=== PATIENT | female | born 1935 | race Caucasian/White ===

== ENCOUNTER 2016-08-04 19:49 | Inpatient (IN) | payer OTHER, MEDICAID ==
[~2016-08-04] VITALS: Ht 165.1 cm; Wt 75.3 kg
--- NOTE | 2016-08-04 19:49 | NUR ---
PT CARRIE BLS. TAKEN TO BED 7
[2016-08-04 19:55] VITALS: BP 142/87
--- NOTE | 2016-08-04 20:05 | NUR ---
BIBA FROM [facility] C/O LOW H&H AND GENERALIZED WEAKNESS.
[2016-08-04] MEDS ORDERED: NACL 0.9% 1,000 ML IV ONE (20:10)
[2016-08-04] MEDS ORDERED: ACETAMINOPHEN EXTRA STRENGTH 500 MG TAB ONE (20:15)
--- NOTE | 2016-08-04 20:20 | NUR ---
X-Ray at bedside.
[2016-08-04] MEDS ORDERED: PIPERACILLIN/TAZOBACTAM 3.375 GM in DEXTROSE 5% 50 ML IV ONE (20:30)
[2016-08-04] MEDS ORDERED: PIPERACILLIN/TAZOBACTAM 3.375 GM VIAL IV ONE (20:44)
[2016-08-04] MEDS ORDERED: POTASSIUM CHLORIDE 10 MEQ TABER PO ONE (21:15)
[2016-08-04] MEDS ORDERED: FUROSEMIDE 40 MG/4 ML VIAL IVP ONE (21:20)
--- NOTE | 2016-08-04 21:45 | NUR ---
Patient will be admitted to care of DR. CAZARES. Admited to TELEMETRY. Will go to room 109A. Belongings list completed. Report to ALEX RING.
[2016-08-04] MEDS ORDERED: MORPHINE SULFATE 2 MG/ML SYR IVP PRN (22:05)
[2016-08-04] MEDS ORDERED: LORazepam 2 MG/ML VIAL IVP PRN (22:05)
[2016-08-04] MEDS ORDERED: ONDANSETRON 4 MG/2 ML VIAL IVP PRN (22:05)
[2016-08-04] MEDS ORDERED: ALBUTEROL 0.083% 2.5 MG/3 ML NEBU INH PRN (22:05)
[2016-08-04] MEDS ORDERED: HYDROcodone/APAP 5/325 MG 1 TAB TAB PO PRN (22:05)
[2016-08-04] MEDS ORDERED: NACL 0.9% 1,000 ML IV SCH (22:05)
[2016-08-04] MEDS ORDERED: ACETAMINOPHEN 325 MG TAB PO PRN (22:05)
[2016-08-04] MEDS ORDERED: ZOLPIDEM 5 MG TAB PO PRN (22:05)
[2016-08-04] MEDS ORDERED: ALBUTEROL SULFATE/IPRATROPIU 3 ML SOL IH PRN (22:10)
[2016-08-04] MEDS ORDERED: POTASSIUM CHLORIDE 10 MEQ TABER PO SCH (22:15)
--- NOTE | 2016-08-04 22:15 | NUR ---
ADMITTED A PT FROM ER, TRANSPORTED VIA GURNEY, ACCOMPANIED BY ER NURSE. PT IS AWAKE AND ALERT, ON TELE MONITOR, DENIES PAIN. ON ROOM AIR, HAS NO S/S OF RESPIRATORY DISTRESS/DISCOMFORT NOTED. IV SITE IS PATENT AND INTACT. SKIN CHECKING DONE,INTACT. MRSA SWABBING DONE. ID BAND UPDATED. ROOM ORIENTATION DONE, VERBALIZED UNDERSTANDING. SAFETY MEASURES INITIATED, VINAY LIGHT WITHIN REACH. WILL CONTINUE TO MONITOR.
[2016-08-04 22:30] VITALS: BP 119/58
--- NOTE | 2016-08-04 22:30 | NUR ---
PT REFUSED TO USE YELLOW SOCKS AND SCD, EXPLANATION WAS GIVEN FOR USING SCD, REFUSED.
[2016-08-05] VITALS: BP 134/62
--- NOTE | 2016-08-05 | NUR ---
V/S CHECKED AND STABLE, DENIES PAIN. O ROOM AIR, HAS NO S/S OF RESPIRATORY DISTRESS/DISCOMFORT NOTED.
[2016-08-05] MEDS ORDERED: PIPERACILLIN/TAZOBACTAM 3.375 GM VIAL IV ONE (00:58)
--- NOTE | 2016-08-05 02:00 | NUR ---
EYES CLOSED, BREATHING EVEN AND UNLABORED. CALL LIGHT WITHIN REACH.
[2016-08-05 04:00] VITALS: BP 137/65
--- NOTE | 2016-08-05 04:00 | NUR ---
EYES CLOSED, BREATHING EVEN ANG UNLABORED. AROUSABLE BY HER NAME, V/S CHECKED AND STABLE, DENIED PAIN. NO S/S OF RESPIRATORY DISTRESS/DISCOMFORT NOTED.
[2016-08-05] MEDS ORDERED: PIPERACILLIN/TAZOBACTAM 3.375 GM in DEXTROSE 5% 50 ML IV SCH (05:00)
--- NOTE | 2016-08-05 06:00 | NUR ---
AM CARE DONE. IV SITE PATENT AND INTACT. CALL LIGHT WITHIN REACH.
[2016-08-05] MEDS: ALBUTEROL SULFATE/IPRATROPIU 3 ML SOL IH SCH ×4 (07:02→19:32)
--- NOTE | 2016-08-05 07:15 | NUR ---
RECEIVED REPORT FROM NIGHT NURSE, PT IS AAOX4. ON ROOM AIR IV TO LEFT HAND 24G INFUSING WELL, SKIN INTACT . INITIAL ASSESSMENT COMPLETED. REVIEWED PLAN OF CARE WITH PT, PT VERBALIZED UNDERSTANDING, ALL SAFETY PRECAUTIONS MET. CALL LIGHT WITHIN REACH. WILL CONTINUE TO MONITOR.
--- NOTE | 2016-08-05 07:15 | NUR ---
ENDORSED PT TO DAY SHIFT NURSE. PT IN STABLE CONDITION.
--- NOTE | 2016-08-05 07:15 | NUR ---
RECEIVED REPORT FROM NIGHT NURSE, PT IS AAOX3 KAZAKH SPEAKING. ON ROOM AIR IV TO LEFT HAND 24G INFUSING WELL, SKIN INTACT . PT STATES NO CHEST PAIN OR SOB AT AT THIS TIME. INITIAL ASSESSMENT COMPLETED. REVIEWED PLAN OF CARE WITH PT, PT VERBALIZED UNDERSTANDING, ALL SAFETY PRECAUTIONS MET. CALL LIGHT WITHIN REACH. WILL CONTINUE TO MONITOR. Addendum: 08/05/16 at 0803 by Elissa Ireland RN DELETE. WRONG PT.
[2016-08-05 08:00] VITALS: BP 155/65
[2016-08-05] MEDS ORDERED: FERROUS SULFATE 325 MG TABEC PO SCH (08:00)
[2016-08-05] MEDS ORDERED: MORPHINE SULFATE 2 MG/ML SYR IVP PRN (08:15)
[2016-08-05] MEDS ORDERED: ZOLPIDEM 10 MG TAB PO PRN (08:15)
[2016-08-05] MEDS ORDERED: DOCUSATE SODIUM 100 MG GELCAP PO PRN (08:15)
[2016-08-05] MEDS ORDERED: LORazepam 2 MG/ML VIAL IVP PRN (08:15)
[2016-08-05] MEDS ORDERED: ONDANSETRON 4 MG/2 ML VIAL IVP PRN (08:15)
[2016-08-05] MEDS: BUDESONIDE 0.5 MG/2 ML NEBU INH SCH ×2 (09:00→19:32)
[2016-08-05] MEDS: FUROSEMIDE 40 MG/4 ML VIAL IVP SCH ×2 (09:10→17:09)
[2016-08-05] MEDS: ASCORBIC ACID 500 MG TAB PO SCH (09:10)
[2016-08-05] MEDS: DEXT 5% / NACL 0.9% 500 ML IV SCH (09:11)
[2016-08-05] MEDS ORDERED: PANTOPRAZOLE 40 MG TABEC PO SCH (09:12)
--- NOTE | 2016-08-05 09:14 | NUR ---
DUE MEDICATIONS GIVEN, PT TOLERATED WELL. ALL NEEDS MET. CALL LIGHT WITHIN RAECH. WILL CONTINUE TO MONITOR.
[2016-08-05] MEDS ORDERED: ACETAMINOPHEN 325 MG SUPP RC PRN (09:15)
[2016-08-05] MEDS ORDERED: CARVEDILOL 3.125 MG TAB PO SCH (09:19)
--- NOTE | 2016-08-05 09:46 | NUR ---
PER JESSICA MUSEUM PREPARATOR, FAX REVIEW TO [facility] [phone] PHONE [phone] CM KIT [phone] SPOKE WITH ABDI AT [facility] TRACKING NUMBER [id number]. FAXED INITIAL REVIEW TO [facility] [phone] PHONE [phone]
--- NOTE | 2016-08-05 09:54 | NUR ---
PATIENT HAS BEEN SCREENED AND CATEGORIZED MODERATE NUTRITION RISK. PATIENT WILL BE SEEN WITHIN 3-5 DAYS OF ADMISSION. 08/07/16-08/09/[address] Addendum: 08/06/16 at [address] PATIENT HAS BEEN RE-SCREENED AND CATEGORIZED HIGH NUTRITION RISK. PATIENT WILL BE SEEN WITHIN 1-2 DAYS OF ADMISSION. 08/05/16-08/06/[address]
[2016-08-05] MEDS: ACETAMINOPHEN 325 MG TAB PO PRN (09:55)
[2016-08-05] MEDS: FERRIC GLUCONATE 125 MG in NACL 0.9% 100 ML IV SCH (09:56)
[2016-08-05] MEDS: POTASSIUM CHLORIDE 10 MEQ TABER PO PRN (10:49)
--- NOTE | 2016-08-05 10:59 | NUR ---
TEMPERATURE WAS RETAKEN 98.5 ORAL. ALL NEEDS MET. DAUGHTER AT BEDSIDE. CALL LIGHT WITHIN REACH. WILL CONTINUE TO MONITOR.
--- NOTE | 2016-08-05 11:03 | NUR ---
PT REFUSED BOTH HER BREATHING TX PT IS AWAKE AND ALERT WITH DAUGHTER AT BEDSIDE NO SIGNS OF DISTRESS WERE NOTED INSTRUCTED PT ON I.S PT DID 1000ML FOUR TIMES WITH GOOD EFFORT PT DID SPUTUM AND RN JACK NOTIFIED
[2016-08-05 12:00] VITALS: BP 117/59
[2016-08-05] MEDS: PIPER/TAZO 2.25GM/D5W PREMIX 50 ML IV SCH ×2 (12:00→17:09)
--- NOTE | 2016-08-05 12:00 | NUR ---
ONE UNIT OF RED BLOOD CELLS GIVEN, PRE TRANSFUSION VS: 98.6, [id number], HR 88, PULSE OX 95%. WILL CONTINUE TO MONITOR.
[2016-08-05] MEDS: FERROUS SULFATE 325 MG TABEC PO SCH ×2 (13:11→17:08)
--- NOTE | 2016-08-05 13:12 | NUR ---
DUE MEDICATION GIVEN. BLOOD TRANSFUSION CURRENTLY INFUSING. ALL NEEDS MET. CALL LIGHT WITHIN REACH. WILL CONTINUE TO MONITOR.
[2016-08-05 16:00] VITALS: BP 108/58
--- NOTE | 2016-08-05 16:30 | NUR ---
SECOND UNIT OF BLOOD STARTED. PRE INFUSION VS. 98.3, HR 83, RR 18, BP 134/65. WILL CONTINUE TO MONITOR
[2016-08-05] MEDS: PANTOPRAZOLE 40 MG TABEC PO SCH (17:09)
--- NOTE | 2016-08-05 17:10 | NUR ---
DUE MEDICATIONS GIVEN. PT TOLERATED WELL. SECOND UNIT OF BLOOD INFUSING AT THIS TIME. ALL NEEDS MET. CALL LIGHT WITHIN REACH. WILL CONTINUE TO MONITOR.
--- NOTE | 2016-08-05 19:15 | NUR ---
ENDORSED PLAN OF CARE TO NIGHT NURSE. BLOOD TRANSFUSION INFUSING . PT AWAKE NO S/S OF DISTRESS NOTED.
--- NOTE | 2016-08-05 19:20 | NUR ---
RECEIVED REPORT FROM DAY SHIFT NURSE. PATIENT IS AAOX4, ON TELE MONITOR, DENIES PAIN. ON ROOM AIR, HAS NO S/S OF RESPIRATORY DISTRESS/DISCOMFORT NOTED. IV SITE IS PATENT AND INTACT, BLOOD TRANSFUSION ONGOING AND INFUSING WELL/ PLAN OF CARE DISCUSSED, VERBALIZED UNDERSTANDING. SAFETY MEASURES CHECKED, CALL LIGHT WITHIN REACH. WILL CONTINUE TO MONITOR.
--- NOTE | 2016-08-05 19:35 | NUR ---
LOOSE BOWEL MOVEMENT OF DARK FECES NOTED, PT CHANGED THE GOWN WITH THE CHIEF DEPUTY CLERK/BAILIFF. REPOSITIONED THE PT, NO DISTRESS NOTED.
--- NOTE | 2016-08-05 19:40 | NUR ---
RCV'D PT ON RA SAT 93%. STARTED HHN TX BUT PT KEPT COUGHING FORCEFULLY AND SHE SAID SHE WANTED TO VOMIT. I TURNED OFF TX. PT HAS AN EPISODE OF MILD VOMIT. RN ULYSIS AT BEDSIDE. PT IS CALM NOW. WILL CONTINUE TO MONITOR.
--- NOTE | 2016-08-05 19:45 | NUR ---
BLOOD TRANSFUSION DONE, V/S CHECKED AND STABLE. NO COMPLAIN OF PAIN, CHILLS AND ITCHINESS. WILL CONTINUE TO MONITOR.
[2016-08-05 20:00] VITALS: BP 93/62
[2016-08-05] MEDS: CARVEDILOL 3.125 MG TAB PO SCH (20:12)
--- NOTE | 2016-08-05 20:22 | NUR ---
PT ACCIDENTALLY PULLED HER IV. CANNULA IS INTACT. SECURED WITH TAPE. AND APPLIED PRESSURE.
[2016-08-05] MEDS ORDERED: ASCORBIC ACID 500 MG TAB PO SCH (21:00)
--- NOTE | 2016-08-05 23:38 | NUR ---
PAGED DR RASHID FOR CRITICAL VALUE TO REPORT, WAITING FOR CALL BACK.
--- NOTE | 2016-08-05 23:40 | NUR ---
CALL BACK RECEIVED, SPOKE WITH DR. RASHID VIA PHONE, REPORTED CRITICAL VALUE OF WBC= 33.2. MADE AWARE.
[2016-08-06] VITALS: BP 132/68
--- NOTE | 2016-08-06 | NUR ---
V/S CHECKED AND STABLE. DENIES PAIN. HAS NO S/S OF RESPIRATORY DISTRESS/DISCOMFORT NOTED.
[2016-08-06] MEDS: PIPER/TAZO 2.25GM/D5W PREMIX 50 ML IV SCH ×4 (00:26→17:04)
[2016-08-06] MEDS: POTASSIUM CHLORIDE 10 MEQ TABER PO PRN (01:30)
[2016-08-06] MEDS: MAG SULF 2000 MG/WATER PREMIX 50 ML IV PRN ×2 (01:32→15:08)
--- NOTE | 2016-08-06 02:35 | NUR ---
EYES CLOSED, RESTING QUIETLY, BREATHING EVEN AND UNLABORED. IV FLUID INFUSING WELL. CALL LIGHT WITHIN REACH.
[2016-08-06 04:00] VITALS: BP 127/62
--- NOTE | 2016-08-06 04:00 | NUR ---
PT SLEEPING, EASILY AROUSABLE BY HER NAME. V/S CHECKED AND STABLE, DENIED PAIN. IV FLUID INFUSING WELL. CALL LIGHT WITHIN REACH.
--- NOTE | 2016-08-06 05:32 | NUR ---
AM CARE DONE. NO DISTRESS NOTED. REPOSITIONED THE PT. CALL LIGHT WITHIN REACH.
[2016-08-06] MEDS: PANTOPRAZOLE 40 MG TABEC PO SCH ×2 (06:33→17:04)
[2016-08-06] MEDS: LEVOTHYROXINE 0.025 MG TAB PO SCH (06:33)
--- NOTE | 2016-08-06 06:53 | NUR ---
RECEIVED CRITICAL VALUE OF WBC= 31.6, CHARGE NURSE MADE AWARE. WBC IS TRENDING DOWN WILL ENDORSE TO DAY SHIFT NURSE.
[2016-08-06] MEDS: ALBUTEROL SULFATE/IPRATROPIU 3 ML SOL IH SCH ×4 (07:19→19:55)
--- NOTE | 2016-08-06 07:20 | NUR ---
ENDORSED TO DAY SHIFT NURSE. PT IN STABLE CONDITION.
--- NOTE | 2016-08-06 07:20 | NUR ---
RECEIVED REPORT FROM NIGHT NURSE, PT IS AAOX4. ON ROOM AIR IV TO RIGHT AC 22G INFUSING WELL, SKIN INTACT . INITIAL ASSESSMENT COMPLETED. REVIEWED PLAN OF CARE WITH PT, PT VERBALIZED UNDERSTANDING, ALL SAFETY PRECAUTIONS MET. CALL LIGHT WITHIN REACH. WILL CONTINUE TO MONITOR.
[2016-08-06] MEDS: BUDESONIDE 0.5 MG/2 ML NEBU INH SCH ×2 (07:30→19:54)
--- NOTE | 2016-08-06 07:30 | NUR ---
PT REFUSED PULMICORT HHN
[2016-08-06 08:00] VITALS: BP 135/66
[2016-08-06] MEDS ORDERED: POTASSIUM CHLORIDE 10 MEQ TABER PO SCH ×2 (08:00→15:30)
[2016-08-06] MEDS: DEXT 5% / NACL 0.9% 500 ML IV SCH (08:30)
[2016-08-06] MEDS: CARVEDILOL 3.125 MG TAB PO SCH ×2 (08:59→20:14)
[2016-08-06] MEDS: FERROUS SULFATE 325 MG TABEC PO SCH ×3 (08:59→17:05)
[2016-08-06] MEDS: ECOTRIN 81 MG TABEC PO SCH (08:59)
[2016-08-06] MEDS: ASCORBIC ACID 500 MG TAB PO SCH (08:59)
[2016-08-06] MEDS: FUROSEMIDE 40 MG/4 ML VIAL IVP SCH ×2 (09:00→17:04)
--- NOTE | 2016-08-06 09:05 | NUR ---
DUE MEDICATIONS GIVEN. NO S/S OF DISTRESS NOTED. ALL NEEDS MET. CALL LIGHT WITHIN REACH. WILL CONTINUE TO MONITOR.
--- NOTE | 2016-08-06 10:01 | NUR ---
SS NOTE: MESSAGE LEFT FOR PT'S DTR, JUANA REGARDING PT'S DISCHARGE PLAN
[2016-08-06] MEDS: FERRIC GLUCONATE 125 MG in NACL 0.9% 100 ML IV SCH (10:31)
--- NOTE | 2016-08-06 10:31 | NUR ---
DUE MEDICATIONS GIVEN, RT IN ROOM WITH PT, ALL NEEDS MET. CALL LIGHT WITHIN REACH. WILL CONTINUE TO MONITOR.
[2016-08-06 12:00] VITALS: BP 123/55
--- NOTE | 2016-08-06 12:23 | NUR ---
08/06/16 RD INITIAL ASSESSMENT COMPLETED PLEASE REFER TO NUTRITION ASSESSMENT UNDER CARE ACTIVITY FOR ESTIMATED NUTRITIONAL NEEDS. RD RECOMMENDATIONS: 1. RECOMMEND CHANGING DIET TO REGULAR TO ENCOURAGE INCREASED PO INTAKES. 2. ENCOURAGE INCREASED PO INTAKES. --NOTE PT MEETING 17% OF ESTIMATED CALORIC NEEDS AND 23% ESTIMATED PROTEIN NEEDS. 3. RD WILL F/U 3-5 DAYS; MODERATE RISK. FRANK LEWIS, RD
--- NOTE | 2016-08-06 12:43 | NUR ---
DUE MEDICATIONS GIVEN. PT RESTING IN BED. NO S/S OF DISTRESS NOTED. CALL LIGHT WITHIN REACH.
--- NOTE | 2016-08-06 12:43 | NUR ---
CM NOTE FAXED CONCURRENT REVIEW TO [facility] [phone] PHONE [phone] CM KIT [phone] AND TO [facility] TRACKING NUMBER [id number] FAX# [phone] PHONE [phone]
--- NOTE | 2016-08-06 15:05 | NUR ---
PT RESTING IN BED, NO S/S OF RESPIRATORY DISTRESS NOTED. ALL NEEDS MET. CALL LIGHT WITHIN REACH. WILL CONTINUE TO MONITOR.
[2016-08-06] MEDS ORDERED: MAG SULF 2000 MG/WATER PREMIX 50 ML IV SCH (15:30)
[2016-08-06 15:57] VITALS: BP 126/66
--- NOTE | 2016-08-06 17:05 | NUR ---
DUE MEDICATION GIVEN, DAUGHTER AT BEDSIDE. ALL NEEDS MET. CALL LIGHT WITHIN REACH. WILL CONTINUE TO MONITOR.
--- NOTE | 2016-08-06 19:30 | NUR ---
ENDORSED PLAN OF CARE TO NIGHT NURSE PT IN STABLE CONDITION.
--- NOTE | 2016-08-06 19:30 | NUR ---
RECEIVED REPORT FROM DAY RN AT BEDSIDE, PATIENT IN STABLE CONDITION, AAOX4 RESTING IN BED ON ROOM AIR, NO SOB OR SIGN OF DISTRESS, IV TO RIGHT WRIST INTACT, PATENT, SKIN INTACT, SAFETY MEASURES CHECKED, DISCUSSED PLAN OF CARE WITH PATIENT, PATIENT VERBALIZED UNDERSTANDING, CALL LIGHT WITHIN REACH. WILL CONTINUE TO MONITOR.
[2016-08-06 20:00] VITALS: BP 122/56
--- NOTE | 2016-08-06 20:17 | NUR ---
PM MEDS ADMINISTERED, PATIENT TOLERATED WELL, CALL LIGHT WITHIN REACH, SAFETY MEASURES CHECKED, WILL CONTINUE TO MONITOR
--- NOTE | 2016-08-06 22:30 | NUR ---
PATIENT SLEEPING, NO SIGN OF DISTRESS, CALL LIGHT WITHIN REACH. WILL CONTINUE TO MONITOR.
[2016-08-07] VITALS: BP 123/66
--- NOTE | 2016-08-07 | NUR ---
VITAL SIGNS STABLE, NO SOB OR SIGN OF DISTRESS, CALL LIGHT WITHIN REACH WILL CONTINUE TO MONITOR
[2016-08-07] MEDS: PIPER/TAZO 2.25GM/D5W PREMIX 50 ML IV SCH ×4 (00:26→20:30)
--- NOTE | 2016-08-07 02:30 | NUR ---
PATIENT SLEEPING, NO SIGN OF DISTRESS, WILL CONTINUE TO MONITOR
[2016-08-07 04:00] VITALS: BP 130/64
--- NOTE | 2016-08-07 04:15 | NUR ---
VITAL SIGNS STABLE, NO SOB OR SIGN OF DISTRESS, CALL LIGHT WITHIN REACH. WILL CONTINUE TO MONITOR
[2016-08-07] MEDS: LEVOTHYROXINE 0.025 MG TAB PO SCH (05:52)
[2016-08-07] MEDS: BUDESONIDE 0.5 MG/2 ML NEBU INH SCH ×2 (07:03→20:07)
[2016-08-07] MEDS: ALBUTEROL SULFATE/IPRATROPIU 3 ML SOL IH SCH ×4 (07:03→20:07)
--- NOTE | 2016-08-07 07:06 | NUR ---
RCV'D PT ON RA SPO2 98%. PT IS AWAKE AND ALERT. REFUSED BOTH HHN TX. BS CLEAR WITH GOOD CHEST RISE. NO SOB OR DISTRESS NOTED. WILL CONTINUE TO MONITOR.
--- NOTE | 2016-08-07 07:25 | NUR ---
RECEIVED PT REPORT AT BEDSIDE FROM NIGHT NURSE. PT IS AAOX4 ON ROOM AIR AND SHOWS NO S/S OF DISTRESS NOTED. PT ON TELE MONITORING. PT WAS ON BED HOLDEN AND VOIDED CLEAR YELLOW URINE. PT HAS NOTED IV ON THE L WRIST WITH IVF RUNNING. PT DENIES PAIN AND SOB. PT SKIN IS INTACT. PT BED IS LOWERED, FLAT, AND CALL LIGHT WITHIN REACH. WILL CONTINUE TO MONITOR.
[2016-08-07 07:57] VITALS: BP 141/71
--- NOTE | 2016-08-07 08:08 | NUR ---
ABG DONE WITHOUT INCIDENT. READ RESULTS VERBALLY TO DR GEO WADDELL. RESULTS ARE POSTED ON [email or web address]..
[2016-08-07] MEDS: DEXT 5% / NACL 0.9% 500 ML IV SCH (08:30)
--- NOTE | 2016-08-07 09:00 | NUR ---
ADMINISTERED SCHEDULED MEDICATIONS. PT TOLERATED WELL. PT ON ROOM AIR AND SHOWS NO S/S OF DISTRESS NOTED.
[2016-08-07] MEDS: CARVEDILOL 3.125 MG TAB PO SCH ×2 (09:12→20:13)
[2016-08-07] MEDS: PANTOPRAZOLE 40 MG TABEC PO SCH ×2 (09:12→16:11)
[2016-08-07] MEDS: FERROUS SULFATE 325 MG TABEC PO SCH ×3 (09:13→16:11)
[2016-08-07] MEDS: ECOTRIN 81 MG TABEC PO SCH (09:13)
[2016-08-07] MEDS: ASCORBIC ACID 500 MG TAB PO SCH (09:13)
[2016-08-07] MEDS: POTASSIUM CHLORIDE 10 MEQ TABER PO PRN (09:13)
[2016-08-07] MEDS: FUROSEMIDE 40 MG/4 ML VIAL IVP SCH ×2 (09:16→16:14)
--- NOTE | 2016-08-07 09:50 | NUR ---
PT IS BEING GIVEN AM CARE, BED BATH, AND SANDRA CARE. PT IS TOLERATING WELL AND SHOWS NO S/S OF DISTRESS. WILL CONTINUE TO MONITOR.
--- NOTE | 2016-08-07 10:15 | NUR ---
PT IS BEING TAKEN TO CT SCAN. PT IS IN STABLE CONDITION.
--- NOTE | 2016-08-07 10:25 | NUR ---
PT IS BACK ON UNIT FROM RADIOLOGY. PT IS AAOX4 AND SHOWS NO S/S OF DISTRESS. WILL CONTINUE TO MONITOR.
[2016-08-07] MEDS: FERRIC GLUCONATE 125 MG in NACL 0.9% 100 ML IV SCH (10:38)
--- NOTE | 2016-08-07 10:40 | NUR ---
CM NOTE FAXED CONCURRENT REVIEW TO [facility] [phone] PHONE [phone] CM KIT [phone] AND TO [facility] TRACKING NUMBER [id number] FAX# [phone] PHONE [phone]
--- NOTE | 2016-08-07 11:15 | NUR ---
PT HAS BEEN REFUSING SCD'S AND BREATHING TX. PT IS AGITATED WILL ADMINISTER PRN MEDICATION. PLEASE SEE EMAR.
--- NOTE | 2016-08-07 11:26 | NUR ---
PT REFUSED HHN TX. JHONATHAN ROGERS AWARE. Addendum: 08/07/16 at 1127 by Buddy Krishnan RT NO SOB OE DISTRESS NOTED. PT AWAKE AND ALERT.
--- NOTE | 2016-08-07 11:30 | NUR ---
CALLED PT DAUGHTER TREE. DAUGHTER IS AWARE OF PT STATE AND TALKED TO PT TO CALM HER DOWN. PT IS STILL AGITATED AND STATES " I WANT TO GO HOME RIGHT NOW" WILL CONTINUE TO MONITOR PT.
--- NOTE | 2016-08-07 11:41 | NUR ---
[facility] WAS NOT AGITATED EARLIER, BUT AT THIS TIME SHE IS BUT CLEARED FOR P.T. TO TRY. UPON P.T. ARRIVAL PT SAID "I NEED THE POLICE I NEED TO GET OUT OF HERE, THEY ARE HOLDING ME HERE." THIS P.T. EXPLAINED SHE IS IN A HOSPITAL AND HER NEEDS ARE BEING ATTENDED. PT SAID "I KNOW I AM IN A HOSPITAL I DON'T NEED TO BE HERE." THIS P.T. EXPLAINED HER IV STATING SHE NEEDS IRON,THEN PT ABRUPTLY SAID "YOU'RE IN [place] WITH THEM, GET OUT OF HERE, I DON'T WANT YOU HERE, GET AWAY." [facility] MADE AWARE OF PT'S CONTINUED AGITATED STATED AND UNABLE TO PARTICIPATE WITH P.T. AT THIS TIME. PVE Addendum: 08/07/16 at 1154 by Lottie Rai PT checked in on pt at a later time, pt sound asleep, pt was given ativan by [facility] d/t agitation. PVE
[2016-08-07 11:55] VITALS: BP 132/70
--- NOTE | 2016-08-07 12:15 | NUR ---
PT IN BED SLEEPING. PT SHOWS NO S/S OF DISTRESS NOTED.
--- NOTE | 2016-08-07 12:45 | NUR ---
DR GUARDADO SPOKE WITH PT'S DAUGHTER FRANCY ABOUT RESULTS FROM CT SCAN W/O CONTRAST. MD LET DAUGHTER AWARE OF RESULTS SHOWING MALIGNANCY. DAUGHTER STATES SHE IS AWARE OF THE MALIGNANCY AND STATED PT IS ALSO AWARE. DAUGHTER STATES PT DOES NOT WANT ANY FURTHER TX FOR THE MALIGNANCY. PLEASE SEE IMAGING RESULTS FOR CT SCAN W/O CONTRAST. DAUGHTER VERBALIZED UNDERSTANDING OF PT'S CONDITION. ALL QUESTIONS WERE ANSWERED BY DR GUARDADO.
--- NOTE | 2016-08-07 13:15 | NUR ---
PT HAS GOWN OFF AND IS AGITATED. PT STATES "I WANT TO GO HOME" REINFORCEMENT IS MADE TO MAKE PT AWARE SHE IS AT THE HOSPITAL BEING TREATED FOR HER DX. PT STATES " I KNOW IM AT THE HOSPITAL. GET AWAY, I WANT TO GO HOME." PT IS REFUSING CARE. WAS ABLE TO PUT ON GOWN WITH [place] ASSISTANCE.
--- NOTE | 2016-08-07 13:30 | NUR ---
PT REFUSED MEDICATIONS. PT URINATED IN BED. KRIS TURNER AND Dario PROVIDED PERICARE AND CHANGED LINENS. PT TOLERATED WELL. PT DAUGHTER ARRIVED ONTO UNIT.
--- NOTE | 2016-08-07 13:45 | NUR ---
PT TELE LEADS ARE OFF AND PT REFUSED TO PLACED THEM BACK ON. PT WAS SEEN TRYING TO TAKE OF HER IV. PT IS REFUSING CARE. PT DAUGHTER IS AT BEDSIDE AND HELPED PLACE LEADS ON PT. PT IS IN BED ON ROOM AIR SAT O2 AT 94% PT IS RESTING NOW.
--- NOTE | 2016-08-07 14:13 | NUR ---
PT DAUGHTER IS AT BEDSIDE. PT SHOWS NO S/S OF DISTRESS ON ROOM AIR.
--- NOTE | 2016-08-07 15:30 | NUR ---
PT REFUSED HHN TX.
--- NOTE | 2016-08-07 16:00 | NUR ---
PT SEEN BY DR GODINEZ AND DR GUARDADO TO EVALUATE PT CT W/O CONTRAST. PER MD'S RESULTS FROM CT SCAN W/O CONTRAST SHOWS MALIGNANCY. MD'S SPOKE WITH PT'S DAUGHTER AND SON TO CONSIDER THE NEXT STEPS OF PLAN OF CARE. DAUGHTER LET MD AWARE THAT PT IS AWARE OF MALIGNANCY SHOWN ON THE CT SCAN WITHOUT CONTRAST AND DOES NOT WANT ANY FURTHER TREATMENT FOR IT. MD SPOKE WITH DAUGHTER ABOUT HOSPICE CARE AND CHANGING FULL CODE TO MODIFIED CODE. PT'S DAUGHTER AND SON ARE AWARE OF THE PT'S CONDITION AND VERBALIZED UNDERSTANDING OF PT'S CONDITION. FAMILY OF PT AGREE WITH THE MD ORDERS AND SUGGESTIONS.
--- NOTE | 2016-08-07 17:00 | NUR ---
PT WAS GIVEN PERINEAL CARE AND SHEETS WERE CHANGED. PT WAS TURNED AND REPOSITIONED.
--- NOTE | 2016-08-07 17:25 | NUR ---
PT IS COMBATIVE AND TRYING TO BITE NURSE AND DAY GUARD'S. APPLIED SOFT MITTENS. PT IS RESTING IN BED AND SHOWS NO S/S OF DISTRESS.
--- NOTE | 2016-08-07 17:30 | NUR ---
PT IV WAS DISCONNECTED WITH CANNULA INTACT. PT IS RESTING IN BED NOW.
[2016-08-07 17:48] VITALS: BP 137/96
--- NOTE | 2016-08-07 18:00 | NUR ---
PT IN BED RESTING AND SHOWS NO S/S OF DISTRESS NOTED. PT ON ROOM AIR.
--- NOTE | 2016-08-07 19:15 | NUR ---
GAVE PT REPORT TO NIGHT NURSE AT BEDSIDE. PT ENDORSED IN STABLE CONDITION.
--- NOTE | 2016-08-07 19:17 | NUR ---
RECEIVED PT ON BED AWAKE, CONFUSED TRYING TO GET OOB TO GET DRESSED, ORIENTED TO TIME AND PLACE, REPOSITIONED FOR COMFORT, NO IV LINE AT THIS TIME, VITAL SIGNS TAKEN, SAT-93% ON ROOM AIR, NO SIGNS OF PAIN OR SOB, SAFETY MEASURES IN PLACE, SIDE RAILS UP AND BED ALARM ON, CALL LIGHT WITHIN REACH.
--- NOTE | 2016-08-07 19:40 | NUR ---
BALTA MCCARTHY AT BEDSIDE, PT REFUSED DINNER TRAY, PROVIDED INSTEAD WITH JELLO AND ICE CREAM REQUESTED, TOLERATED WELL, ALL NEEDS ATTENDED.
[2016-08-07 20:00] VITALS: BP 134/75
--- NOTE | 2016-08-07 21:00 | NUR ---
NEW IV LINE INSERTED AT RT HAND, IV ZOSYN ADMINISTERED, DUE PO MEDICATION TAKEN, INCONTINENT OF URINE, SPONGE BATH GIVEN BY FIELD TECHNICAL SUPPORT CONSULTANT, REPOSITION Q2H, MONITORED CLOSELY.
--- NOTE | 2016-08-07 21:53 | NUR ---
PT SEEN TAKING GOWN OFF, WITH PERIODS OF CONFUSION, REORIENTED TO TIME AND PLACE, MONITORED CLOSELY.
--- NOTE | 2016-08-07 22:27 | NUR ---
PT RESTLESS, TOOK OFF GOWN AND TELE MONITOR, VERY CONFUSED, MEDICATED PRN WITH AMBIEN PO, REPOSITIONED FOR COMFORT, MONITORED CLOSELY.
[2016-08-08] VITALS: BP 129/60
[2016-08-08] MEDS: PIPER/TAZO 2.25GM/D5W PREMIX 50 ML IV SCH ×4 (00:05→18:00)
--- NOTE | 2016-08-08 00:05 | NUR ---
PT SLEEPING, EASILY AROUSABLE BUT DROWSY, VITAL SIGNS STABLE, 94% SAT ON ROOM AIR, NO RESP DISTRESS NOTED, CONTINUE TO REPOSITION Q2H, IV ANTIBIOTIC ADMINISTERED, CONTINUE TO MONITOR CLOSELY.
[2016-08-08 04:00] VITALS: BP 136/77
--- NOTE | 2016-08-08 04:00 | NUR ---
PT SLEEPING, EASILY AROUSABLE, VITAL SIGNS STABLE, 94% SAT ON ROOM AIR, NO SIGNS OF SOB, IVF INFUSING WELL, MONITORED CLOSELY.
[2016-08-08] MEDS: DEXT 5% / NACL 0.9% 500 ML IV SCH (05:46)
[2016-08-08] MEDS: LEVOTHYROXINE 0.025 MG TAB PO SCH (05:48)
--- NOTE | 2016-08-08 06:00 | NUR ---
DUE PO MEDICATION GIVEN, TOLERATED WELL, IV ANTIBIOTIC INFUSING WELL, SIDE RAILS UP, MONITORED CLOSELY.
--- NOTE | 2016-08-08 07:20 | NUR ---
PT SLEEPING, NO SIGNS OF DISTRESS, REPORT GIVEN TO SUE RING FOR CONTINUITY OF CARE.
--- NOTE | 2016-08-08 07:20 | NUR ---
RECEIVED PT REPORT AT BEDSIDE FROM NIGHT NURSE. PT IN BED AWAKE, CONFUSED WITH O2 SAT AT 95% ON ROOM AIR. PT IS ON TELE MONITORING. PT HAS NO C/O PAIN. SKIN IS INTACT WITH IVF RUNNING ON THE R HAND. PT BED IS LOWERED AT 30 DEGREES SEMI FOWLERS POSITION AND WITH CALL LIGHT WITHIN REACH. WILL CONTINUE TO MONITOR.
[2016-08-08] MEDS: BUDESONIDE 0.5 MG/2 ML NEBU INH SCH (07:23)
[2016-08-08] MEDS: ALBUTEROL SULFATE/IPRATROPIU 3 ML SOL IH SCH ×3 (07:23→15:23)
[2016-08-08 07:55] VITALS: BP 123/73
--- NOTE | 2016-08-08 09:08 | NUR ---
FAXED CONCURRENT REVIEW TO [facility] [phone] PHONE KIT [phone] FAXED CONCURRENT REVIEW TO [facility] [phone] PHONE MARCIRUZ [phone] I SPOKE WITH MARICRUZ ABOUT HOSPICE AND SHE SAID IT IS A CARVE OUT TO MEDICARE.
[2016-08-08] MEDS: ASCORBIC ACID 500 MG TAB PO SCH (09:17)
[2016-08-08] MEDS: FERROUS SULFATE 325 MG TABEC PO SCH ×3 (09:17→17:19)
[2016-08-08] MEDS: ECOTRIN 81 MG TABEC PO SCH (09:17)
[2016-08-08] MEDS: POTASSIUM CHLORIDE 10 MEQ TABER PO PRN (09:18)
[2016-08-08] MEDS: CARVEDILOL 3.125 MG TAB PO SCH (09:18)
[2016-08-08] MEDS: PANTOPRAZOLE 40 MG TABEC PO SCH ×2 (09:18→17:19)
[2016-08-08] MEDS: FUROSEMIDE 40 MG/4 ML VIAL IVP SCH ×2 (09:18→17:19)
--- NOTE | 2016-08-08 09:20 | NUR ---
ADMINISTERED SCHEDULED MEDICATIONS. PT IS EASILY AROUSABLE AND OPENS EYES SPONTANEOUSLY. PT BED WAS PLACED IN HIGH FOWLERS POSITION TO AVOID ASPIRATION. PT TOOK ONE MEDICATION AT A TIME WITH IN BETWEEN SIPS OF WATER. PT IS NOW RESTING IN BED AND SHOWS NO S/S OF DISTRESS ON ROOM AIR. BED WAS LOWERED SEMI FOWLERS WITH CALL LIGHT WITHIN REACH.
--- NOTE | 2016-08-08 09:30 | NUR ---
SS NOTE: I SPOKE WITH PT'S DTRJUANA REGARDING THE PHYSICIAN'S ORDER FOR HOSPICE. SHE STATED THAT SHE DOES NOT HAVE A PREFERENCE TO WHICH HOSPICE COMPANY COMES TO SEE PT AND WOULD LIKE PT HOME TODAY IF POSSIBLE. SHE ALSO STATED THAT SHE WILL HAVE A LOT OF FAMILY SUPPORT TO HELP HER WITH CARING FOR PT AT HOME.
--- NOTE | 2016-08-08 10:15 | NUR ---
PT GIVEN AM CARE AND TOLERATED WELL. PT IS NOW SLEEPING IN BED AND SHOWS NO S/S OF DISTRESS ON ROOM AIR.
[2016-08-08] MEDS ORDERED: POTASSIUM CHLORIDE 10 MEQ TABER PO SCH (10:56)
--- NOTE | 2016-08-08 11:05 | NUR ---
PT IN BED SLEEPING AND RESTING COMFORTABLY. PT SHOWS NO S/S OF DISTRESS NOTED ON ROOM AIR. WILL CONTINUE TO MONITOR.
--- NOTE | 2016-08-08 11:07 | NUR ---
SS NOTE: PER SAVANAH FROM [facility] ([phone]), THEY WILL CONTACT PT'S DTRJUANA TO ARRANGE A MEETING WITH HER TODAY.
--- NOTE | 2016-08-08 11:50 | NUR ---
PT STATED SHE WANTED TO SPEAK WITH DAUGHTER. CALLED DAUGHTER AND MADE HER AWARE PT IS IN STABLE CONDITION AND HAS BEEN RESTING MOST OF THE MORNING. PT TOLD DAUGHTER "I DON'T THINK I AM GOING TO MAKE IT TODAY. PLEASE COME" PT IS CRYING AND C/O KNEE PAIN. WILL LOOK OVER PRN MEDICATIONS AND FOLLOW THRU WITH ORDERS.
--- NOTE | 2016-08-08 11:55 | NUR ---
SS NOTE: PER JACK FROM [facility], THEY HAVE A 4PM APPT WITH PT'S DTR, JUANA TODAY.
[2016-08-08 12:00] VITALS: BP 118/77
[2016-08-08] MEDS: ACETAMINOPHEN 325 MG TAB PO PRN (12:10)
--- NOTE | 2016-08-08 12:10 | NUR ---
ADMINISTERED SCHEDULED MEDICATIONS. PT IS CRYING IN BED C/O PAIN. WILL MEDICATE WITH PRN PAIN MEDICATION TYLENOL 650MG PO. PT TOLERATED ACTIVITY WELL. WILL CONTINUE TO MONITOR.
--- NOTE | 2016-08-08 12:39 | NUR ---
PT DAUGHTER ARRIVED ONTO UNIT. ANSWERED DAUGHTERS QUESTIONS OF PT POC AND STABLE CONDITION. DAUGHTER IS AWARE PT WAS CRYING AND CAME TO VISIT.
--- NOTE | 2016-08-08 13:15 | NUR ---
PT WAS SEEN BY DR GODINEZ. PT LET DR AWARE OF HER KNEE PAIN. MD AWARE PT WAS GIVEN TYLENOL 650 MG FOR PAIN.
--- NOTE | 2016-08-08 13:30 | NUR ---
PT WAS TURNED AND REPOSITIONED WITH ASSISTANCE FROM RN AND SHALE MINER. PT HAD A BOWEL MOVEMENT. PT WAS GIVEN PERICARE AND SPONGE BATH. PT TOLERATED ACTIVITY WELL. PT WAS ALSO GIVEN SCHEDULED MEDICATIONS AND TOOK A SIP OF WATER TO SWALLOW MEDICATION. PT IS AWAKE AND EASILY AROUSABLE AND SHOWS NO S/S OF DISTRESS ON ROOM AIR.
--- NOTE | 2016-08-08 15:20 | NUR ---
PT IS BEING SEEN BY [facility] NURSE FOR EVALUATION. PT IS IN BED SLEEPING AND SHOWS NO S/S OF DISTRESS ON ROOM AIR. DAUGHTER FRANCY IS AT BEDSIDE.
[2016-08-08 16:00] VITALS: BP 115/64
--- NOTE | 2016-08-08 16:00 | NUR ---
PT IS IN BED AND PLEASANT. PT IS SLEEPING AND EASILY AROUSABLE. PT HAS NO C/O PAIN. PT HAS HOSPICE NURSE DALLAS AND DAUGHTER FRANCY AT BEDSIDE. PT SHOWS NO S/S OF DISTRESS ON ROOM AIR.
--- NOTE | 2016-08-08 16:45 | NUR ---
PT HAD A LARGE BM. PT WAS GIVEN SANDRA CARE AND LINENS WERE CHANGED. PT WAS COOPERATIVE AND FOLLOWED COMMANDS. PT IS NOW RESTING COMFORTABLY IN BED AND SHOWS NO S/S OF DISTRESS ON ROOM AIR. PT HAS DAUGHTER AND TWO SONS AT BEDSIDE. PT IS SMILING AND ENJOYING HER VISIT.
[2016-08-08] MEDS ORDERED: ASPIRIN ADULT L81 M2 PO (17:13)
[2016-08-08] MEDS ORDERED: LEVOTHYROXIN0.025 M1 PO (17:13)
[2016-08-08] MEDS ORDERED: FEROSUL325 MG PO (17:13)
[2016-08-08] MEDS ORDERED: LASIX40 MG PO (17:13)
[2016-08-08] MEDS ORDERED: LEVAQUIN750 MG PO (17:13)
[2016-08-08] MEDS ORDERED: CARVEDILOL3.125 MG PO (17:13)
[2016-08-08] MEDS ORDERED: PHARMASSURE VI500 MG PO (17:13)
[2016-08-08] MEDS ORDERED: CLINDAMYCIN300 M1 PO (17:13)
[2016-08-08] MEDS ORDERED: PANTOPRAZOLE SO40 MG PO (17:13)
--- NOTE | 2016-08-08 17:45 | NUR ---
PT STATED SHE NEEDED BEDPAN. PT WAS GIVEN PERINEAL CARE. PT HAS BED LOWERED SEMI FOWLERS WITH CALL LIGHT WITHIN REACH. PT SHOWS NO S/S OF DISTRESS NOTED ON ROOM AIR.
--- NOTE | 2016-08-08 18:00 | NUR ---
PT SCHEDULED MEDICATION NOT GIVEN BC PT IN PROCESS OF BEING DISCHARGED TO HOME WITH [facility].
--- NOTE | 2016-08-08 19:25 | NUR ---
[facility] AR[facility]IV[facility]NT[facility] UNIT. PT HAD A BM AND WAS CHANGED AND GIVEN PERINEAL CARE. PT CHANGED INTO TRANSPORT ORANGE GOWN. PT LINENS WERE CHANGED. PT WAS THEN DISCHARGED. ALL DISCHARGE INSTRUCTIONS AND PRESCRIPTIONS WERE GIVEN. PT FAMILY GARCIA WAS AT BEDSIDE AND ALL QUESTION THEY PROVIDED WERE ANSWERED. ALL BELONGINGS IN PATIENTS POSSESSION. IV WAS DISCONTINUED WITH CANNULA INTACT. WRISTBANDS AND TELE MONITOR REMOVED. ALL NEEDS WERE MET. GAVE REPORT TO THADDEUS FROM [facility] AT BEDSIDE. PT ENDORSED IN STABLE CONDITION.
== END 2016-08-08 19:25 | disposition hospice, home (50) | DRG 871 ==
LOC: MED 19:49 → MTU 21:31
PROVIDERS: ADMIT Family Medicine; ATTEND Family Medicine
PROC: 30233N1 Transfusion of Nonautologous Red Blood Cells into Peripheral Vein, Percutaneous Approach (ICD-10-PCS; principal; 2016-08-05)
DX: A41.9 Sepsis, unspecified organism (principal); J69.0 Pneumonitis due to inhalation of food and vomit; N17.0 Acute kidney failure with tubular necrosis; E43 Unspecified severe protein-calorie malnutrition; J96.01 Acute respiratory failure with hypoxia; C79.9 Secondary malignant neoplasm of unspecified site; N39.0 Urinary tract infection, site not specified; E02 Subclinical iodine-deficiency hypothyroidism; D49.89 Neoplasm of unspecified behavior of other specified sites; E83.42 Hypomagnesemia; C45.9 Mesothelioma, unspecified; N18.9 Chronic kidney disease, unspecified; D50.9 Iron deficiency anemia, unspecified; K29.70 Gastritis, unspecified, without bleeding; I50.9 Heart failure, unspecified; E11.22 Type 2 diabetes mellitus with diabetic chronic kidney disease; E87.6 Hypokalemia; H54.41 Blindness, right eye, normal vision left eye; Z86.73 Personal history of transient ischemic attack (TIA), and cerebral infarction without residual deficits; Z68.27 Body mass index [BMI] 27.0-27.9, adult